=== PATIENT | male | born 1945 ===

== ENCOUNTER 2024-06-19 06:38 | Day surgery (SDC) | payer OTHER ==
[2024-06-19] MEDS ORDERED: fentaNYL CITRATE 50 MCG/ML AMPUL IV ONE (10:30)
[2024-06-19] MEDS ORDERED: MIDAZOLAM HCL 2 MG/2 ML VIAL IV ONE (10:30)
[2024-06-19] MEDS ORDERED: DIPHENHYDRAMINE HCL 50 MG/ML VIAL 1ML IV ONE (10:30)
[2024-06-19] MEDS ORDERED: FLUMAZENIL 0.5 MG/5 ML ML IV ONE (11:45)
[2024-06-19] MEDS ORDERED: ENALAPRILAT DIHYDRATE 2.5 MG/2 ML VIAL IV ONE (13:00)
== END 2024-06-19 13:30 | disposition home or self-care (01) ==
LOC: AMB-ENDOS 06:38
PROVIDERS: ATTEND Surgery
DX: K63.5 Polyp of colon (principal); K57.30 Diverticulosis of large intestine without perforation or abscess without bleeding; K64.8 Other hemorrhoids; Z86.0100 Personal history of colon polyps, unspecified

== ENCOUNTER 2024-11-28 06:47 | Day surgery (SDC) | payer OTHER ==
[2024-11-28] MEDS ORDERED: MIDAZOLAM HCL 2 MG/2 ML VIAL IV ONE (10:30)
[2024-11-28] MEDS ORDERED: DIPHENHYDRAMINE HCL 50 MG/ML VIAL 1ML IV ONE (10:30)
[2024-11-28] MEDS ORDERED: fentaNYL CITRATE 50 MCG/ML AMPUL IV ONE (10:30)
[2024-11-28] MEDS ORDERED: ENALAPRILAT DIHYDRATE 2.5 MG/2 ML VIAL IV ONE (10:45)
== END 2024-11-28 11:40 | disposition home or self-care (01) ==
LOC: AMB-ENDOS 06:47
PROVIDERS: ATTEND Surgery
DX: D12.2 Benign neoplasm of ascending colon (principal); D12.3 Benign neoplasm of transverse colon; D12.4 Benign neoplasm of descending colon; K63.5 Polyp of colon; K57.30 Diverticulosis of large intestine without perforation or abscess without bleeding; K64.8 Other hemorrhoids

== ENCOUNTER 2025-02-13 11:30 | Inpatient (IN) | payer OTHER ==
[~2025-02-13] VITALS: Ht 160 cm; Wt 66.2 kg
[2025-02-13] MEDS ORDERED: VASOTEC5 MG PO (13:03)
[2025-02-13] MEDS ORDERED: LEVO-T50 MCG PO (13:03)
[2025-02-13] MEDS ORDERED: ISOSORBIDE DINI30 MG PO (13:03)
[2025-02-13] MEDS ORDERED: TRADJENTA5 MG PO (13:04)
[2025-02-13] MEDS ORDERED: GLIPIZIDE XL5 MG PO (13:04)
[2025-02-20] MEDS ORDERED: METRONIDAZOLE/SODIUM CHLORIDE 500 MG/100 ML PIGGYBACK IV ONE ×2 (08:50→17:19)
[2025-02-20] MEDS ORDERED: CEFTRIAXONE SODIUM 2,000 MG VIAL ONE (08:50)
[2025-02-20] MEDS ORDERED: hydrALAZINE HCL 20 MG VIAL ONE (12:54)
[2025-02-20] MEDS ORDERED: SUGAMMADEX SODIUM 200 MG/2 ML VIAL IV ONE (13:15)
[2025-02-20] MEDS ORDERED: hydrALAZINE HCL 20 MG VIAL IV ONE (13:15)
[2025-02-20] MEDS ORDERED: MORPHINE SULFATE 4 MG/ML CARTRIDGE IV PRN (13:45)
[2025-02-20] MEDS ORDERED: RINGERS SOLUTION,LACTATED 1,000 ML IV SCH (13:45)
[2025-02-20] MEDS ORDERED: OxyCODONE HCL 5 MG TABLET (ROXICODONE) PO PRN (13:45)
[2025-02-20] MEDS ORDERED: ONDANSETRON HCL 2 MG/ML VIAL IV PRN (13:45)
[2025-02-20] MEDS ORDERED: ENALAPRILAT DIHYDRATE 1.25 MG/ML VIAL IV PRN (14:45)
[2025-02-20] MEDS ORDERED: TAMSULOSIN HCL 0.4 MG CAP PO SCH (17:00)
[2025-02-20] MEDS ORDERED: METRONIDAZOLE/SODIUM CHLORIDE 500 MG/100 ML PIGGYBACK IV SCH (17:00)
[2025-02-20] MEDS ORDERED: LACTOBACILLUS ACIDOPHILUS 1 CAP CAP PO SCH (17:00)
[2025-02-20] MEDS ORDERED: HYOSCYAMINE SULFATE 0.125 MG TAB.SUBL SL SCH (17:00)
[2025-02-20] MEDS ORDERED: ISOSORBIDE MONONITRATE 30 MG TABLET PO SCH (17:00)
[2025-02-20] MEDS ORDERED: GABAPENTIN 300 MG CAPSULE PO SCH (17:00)
[2025-02-20] MEDS ORDERED: ACETAMINOPHEN 500 MG GEL..CAP PO SCH (18:00)
[2025-02-20] MEDS ORDERED: ENALAPRILAT DIHYDRATE 1.25 MG/ML VIAL IV ONE (18:41)
[2025-02-20 20:37] VITALS: BP 172/68; O2SAT 94
[2025-02-20] MEDS ORDERED: FAMOTIDINE/PF 20 MG/2 ML VIAL IV PUSH SCH (21:00)
[2025-02-20] MEDS ORDERED: CIPROFLOXACIN IN 5 % DEXTROSE 400 MG/200 ML PIGGYBAG IV SCH (21:00)
[2025-02-21 00:30] VITALS: BP 137/73; O2SAT 96
[2025-02-21] MEDS ORDERED: LEVOTHYROXINE SODIUM 50 MCG TABLET PO SCH (06:00)
[2025-02-21 08:20] VITALS: BP 135/65; O2SAT 95
[2025-02-21] MEDS ORDERED: ENALAPRIL MALEATE 5 MG TABLET PO SCH (09:00)
[2025-02-21 09:08] LABS: BUN CREA RATIO 8.0 (7.0-25.0); CREATININE SERUM 0.87 mg/dL (0.70-1.30); GFR 84.65; GLUCOSE FASTING 178.0 mg/dL (65-100); OSMOLALITY SERUM 280.0 MOSM/KG (275-295)
[2025-02-21 16:00] VITALS: BP 101/64; O2SAT 95
[2025-02-21] MEDS ORDERED: MAGNESIUM SULFATE IN WATER 4 GM/100 ML PIGGYBACK IV NR (16:00)
[2025-02-21] MEDS ORDERED: ENOXAPARIN SODIUM 40 MG/0.4 ML SYRINGE SUBCUTANEO SCH (17:00)
[2025-02-21] MEDS ORDERED: SIMVASTATIN 40 MG TABLET PO SCH (17:00)
[2025-02-21] MEDS ORDERED: POTASSIUM CHLORIDE IN WATER 100 ML IV NR (18:00)
[2025-02-22] MEDS ORDERED: POTASSIUM PHOS,M-BASIC-D-BASIC 15 MM in 0.9 % SODIUM CHLORIDE 250 ML IV ONE
[2025-02-22 00:39] VITALS: BP 119/73; O2SAT 99
[2025-02-22 08:13] LABS: BASO % 0.4 % (0.1-1.2); EOS # 0.01 (0.04-0.54); EOS % 0.1 % (0.7-7.0); LYMPH # 0.65 (1.18-3.74); LYMPH % 7.7 % (19.3-53.1); MEAN PLATELET VOLUME 10.40 fl (9.4-12.4); MONO # 0.41 (0.24-0.82); MONO % 4.9 % (4.7-12.5); NEUT # 6.98 (1.56-6.13); NEUT % 82.5 % (34.0-71.1); RED CELL DISTRIBUTION WIDTH 12.9 % (11.6-14.4)
[2025-02-22 08:38] VITALS: BP 99/61; O2SAT 94
[2025-02-22 08:55] LABS: BUN CREA RATIO 11.0 (7.0-25.0); CREATININE SERUM 0.84 mg/dL (0.70-1.30); GFR 88.14; GLUCOSE FASTING 189.0 mg/dL (65-100); OSMOLALITY SERUM 279.0 MOSM/KG (275-295)
[2025-02-22] MEDS ORDERED: ENOXAPARIN SODIUM 40 MG/0.4 ML SYRINGE SUBCUTANEO SCH (09:00)
[2025-02-22 09:46] LABS: BAND MAN 39.0 %; BASOPHIL MAN 0.0 %; EOSINOPHIL MAN 0.0 %; LYMPHOCYTE MAN 10.0 %; MONOCYTE MAN 3.0 %; NEUTROPHILS MAN 43.0 %
[2025-02-22] MEDS ORDERED: NAPH,MB-DB/K PH,MBDB 1 PKT PACKET PO SCH (13:00)
[2025-02-22 16:00] VITALS: BP 129/73; O2SAT 96
[2025-02-22 18:30] VITALS: BP 115/69; O2SAT 95
[2025-02-22] MEDS ORDERED: DILTIAZEM HCL 50 MG/10 ML VIAL IV ONE (19:15)
[2025-02-22] MEDS ORDERED: PIPERACILLIN/TAZOBACTAM SODIUM 3.375 GM VIAL IV STA (19:54)
[2025-02-22] MEDS ORDERED: PIPERACILLIN/TAZOBACTAM SODIUM 3.375 GM VIAL IV SCH (19:54)
[2025-02-22 20:04] LABS: BASO % 0.3 % (0.1-1.2); EOS # 0.02 (0.04-0.54); EOS % 0.2 % (0.7-7.0); LYMPH # 0.85 (1.18-3.74); LYMPH % 8.6 % (19.3-53.1); MEAN PLATELET VOLUME 10.10 fl (9.4-12.4); MONO # 0.45 (0.24-0.82); MONO % 4.6 % (4.7-12.5); NEUT # 8.46 (1.56-6.13); RED CELL DISTRIBUTION WIDTH 12.9 % (11.6-14.4)
[2025-02-22 20:34] LABS: ALT/SGPT 22.0 U/L (12-78); AST/SGOT 20.0 U/L (15-37); BILIRUBIN TOTAL 0.8 mg/dL (0.3-1.2); BUN CREA RATIO 10.0 (7.0-25.0); CREATININE SERUM 0.9 mg/dL (0.70-1.30); GFR 81.4; GLOBULINA 3.0 G/DL (2.4-3.5)
[2025-02-22 20:42] LABS: NEUT % 85.8 % (34.0-71.1)
[2025-02-22 20:43] LABS: BAND MAN 5.0 %; LYMPHOCYTE MAN 10.0 %; MONOCYTE MAN 7.0 %; NEUTROPHILS MAN 77.0 %; OSMOLALITY SERUM 286.0 MOSM/KG (275-295)
[2025-02-22 20:46] LABS: GLUCOSE FASTING 204.0 mg/dL (65-100)
[2025-02-22] MEDS ORDERED: POTASSIUM PHOS,M-BASIC-D-BASIC 3 MM/ML VIAL IV SCH (20:52)
[2025-02-23 00:40] VITALS: BP 131/76; O2SAT 96
[2025-02-23 06:29] LABS: BASO % 0.7 % (0.1-1.2); EOS # 0.00 (0.04-0.54); EOS % 0.0 % (0.7-7.0); LYMPH # 0.54 (1.18-3.74); LYMPH % 7.5 % (19.3-53.1); MEAN PLATELET VOLUME 10.50 fl (9.4-12.4); MONO # 0.51 (0.24-0.82); MONO % 7.1 % (4.7-12.5); NEUT # 6.08 (1.56-6.13); NEUT % 84.4 % (34.0-71.1); RED CELL DISTRIBUTION WIDTH 13.3 % (11.6-14.4)
[2025-02-23 06:47] LABS: ALT/SGPT 18.0 U/L (12-78); AST/SGOT 17.0 U/L (15-37); BILIRUBIN TOTAL 0.69 mg/dL (0.3-1.2); BUN CREA RATIO 15.0 (7.0-25.0); CREATININE SERUM 0.81 mg/dL (0.70-1.30); GFR 91.92; GLOBULINA 2.7 G/DL (2.4-3.5); GLUCOSE FASTING 195.0 mg/dL (65-100); OSMOLALITY SERUM 286.0 MOSM/KG (275-295)
[2025-02-23] MEDS ORDERED: GABAPENTIN300 MG PO (07:03)
[2025-02-23] MEDS ORDERED: PAIN RELIEVER500 M2 PO (07:03)
[2025-02-23] MEDS ORDERED: HYOSCYAMINE0.125 M1 SL (07:03)
[2025-02-23 07:56] LABS: BAND MAN 20.0 %; LYMPHOCYTE MAN 6.0 %; METAMYELOCYTE 1.0 %; MONOCYTE MAN 8.0 %; MYELOCYTE 1.0 %; NEUTROPHILS MAN 63.0 %
[2025-02-23 08:00] VITALS: BP 101/69; O2SAT 96
[2025-02-23] MEDS ORDERED: POTASSIUM PHOS,M-BASIC-D-BASIC 3 MM/ML VIAL IV SCH (09:00)
[2025-02-23] MEDS ORDERED: DILTIAZEM HCL 125 MG in 0.9 % SODIUM CHLORIDE 100 ML IV SCH (09:15)
[2025-02-23 14:58] LABS: BUN CREA RATIO 17.0 (7.0-25.0); CHOL HDL RATIO 8.4 (0-5.0); CREATININE SERUM 0.76 mg/dL (0.70-1.30); GFR 98.94; GLUCOSE FASTING 191.0 mg/dL (65-100); OSMOLALITY SERUM 288.0 MOSM/KG (275-295)
[2025-02-23 15:02] LABS: HDL 9.0 mg/dl (40-60); LDL 22.0 mg/dl (0-130); VLDL 45.0 (0-39)
[2025-02-23] MEDS ORDERED: AA 4.25%/CAL/LYTES/DEXT 5% 1,000 ML PERIFERAL SCH (17:00)
[2025-02-23 17:51] VITALS: BP 127/67; O2SAT 91
[2025-02-24 01:34] VITALS: BP 137/79; O2SAT 95
[2025-02-24 04:00] VITALS: O2SAT 96
[2025-02-24 08:22] VITALS: BP 123/75; O2SAT 96
[2025-02-24 08:48] LABS: BASO % 0.6 % (0.1-1.2); EOS # 0.07 (0.04-0.54); EOS % 1.1 % (0.7-7.0); LYMPH # 0.65 (1.18-3.74); LYMPH % 10.1 % (19.3-53.1); MEAN PLATELET VOLUME 10.80 fl (9.4-12.4); MONO # 0.52 (0.24-0.82); MONO % 8.1 % (4.7-12.5); NEUT # 5.13 (1.56-6.13); NEUT % 79.6 % (34.0-71.1); RED CELL DISTRIBUTION WIDTH 13.7 % (11.6-14.4)
[2025-02-24 09:36] LABS: BUN CREA RATIO 28.0 (7.0-25.0); CREATININE SERUM 0.58 mg/dL (0.70-1.30); GFR 135.15; TSH 0.655 uIU/mL (0.358-3.74)
[2025-02-24 09:54] LABS: GLUCOSE FASTING 201.0 mg/dL (65-100); OSMOLALITY SERUM 286.0 MOSM/KG (275-295)
[2025-02-24] MEDS ORDERED: POTASSIUM PHOS,M-BASIC-D-BASIC 3 MM/ML VIAL IV ONE (10:15)
[2025-02-24] MEDS ORDERED: POTASSIUM PHOS,M-BASIC-D-BASIC 15 MM in 0.9 % SODIUM CHLORIDE 250 ML IV NR (10:15)
[2025-02-24 15:58] VITALS: BP 146/76; O2SAT 95
[2025-02-24] MEDS ORDERED: METOPROLOL TARTRATE 25 MG TABLET PO SCH (20:59)
[2025-02-25 01:07] VITALS: BP 134/80; O2SAT 100
[2025-02-25] MEDS ORDERED: LEVALBUTEROL HCL 0.63 MG/3 ML SOLUTION IH ONE (05:45)
[2025-02-25 07:30] LABS: BUN CREA RATIO 20.0 (7.0-25.0); CREATININE SERUM 0.69 mg/dL (0.70-1.30); GFR 110.61; GLUCOSE FASTING 217.0 mg/dL (65-100); OSMOLALITY SERUM 281.0 MOSM/KG (275-295)
[2025-02-25 07:40] VITALS: BP 137/74; O2SAT 98
[2025-02-25] MEDS ORDERED: POTASSIUM PHOS,M-BASIC-D-BASIC 3 MM/ML VIAL IV NR (12:00)
[2025-02-25 15:35] VITALS: BP 127/73; O2SAT 97
[2025-02-26 01:07] VITALS: BP 115/70; O2SAT 97
[2025-02-26 07:05] LABS: BASO % 0.7 % (0.1-1.2); EOS # 0.06 (0.04-0.54); EOS % 1.0 % (0.7-7.0); LYMPH # 0.81 (1.18-3.74); LYMPH % 13.5 % (19.3-53.1); MEAN PLATELET VOLUME 10.50 fl (9.4-12.4); MONO # 0.54 (0.24-0.82); MONO % 9.0 % (4.7-12.5); NEUT # 4.49 (1.56-6.13); NEUT % 75.1 % (34.0-71.1); RED CELL DISTRIBUTION WIDTH 13.5 % (11.6-14.4)
[2025-02-26 07:31] LABS: BUN CREA RATIO 19.0 (7.0-25.0); CREATININE SERUM 0.73 mg/dL (0.70-1.30); GFR 103.64; GLUCOSE FASTING 193.0 mg/dL (65-100); OSMOLALITY SERUM 281.0 MOSM/KG (275-295)
[2025-02-26 08:00] VITALS: BP 106/66; O2SAT 97
[2025-02-26 08:59] VITALS: O2SAT 852
[2025-02-26] MEDS ORDERED: POTASSIUM PHOS,M-BASIC-D-BASIC 3 MM/ML VIAL IV ONE (14:00)
[2025-02-26 16:00] VITALS: BP 123/72; O2SAT 99
[2025-02-26] MEDS ORDERED: INSULIN LISPRO 1,000 UNIT/10 ML UNITS SUBCUTANEO PRN (18:30)
[2025-02-26] MEDS ORDERED: DEXTROSE 50 % IN WATER 0.5 G/ML DISP.SYRIN IV PRN (18:30)
[2025-02-27] VITALS: BP 131/81; O2SAT 96
[2025-02-27] MEDS ORDERED: METOPROLOL TARTRATE 50 MG TABLET PO SCH (06:08)
[2025-02-27 08:00] VITALS: BP 103/72; O2SAT 98
[2025-02-27 16:00] VITALS: BP 122/76; O2SAT 99
[2025-02-27] MEDS ORDERED: AMIODARONE HCL 900 MG/500 ML KIT IV ONE (21:42)
[2025-02-27] MEDS ORDERED: AMIODARONE HCL 900 MG in DEXTROSE 5 % IN WATER 500 ML IV SCH (21:45)
[2025-02-28 00:45] VITALS: BP 121/81; O2SAT 100
[2025-02-28] MEDS ORDERED: METOPROLOL TARTRATE 50 MG TABLET PO SCH (05:00)
[2025-02-28 08:00] VITALS: BP 125/64; O2SAT 98
[2025-02-28] MEDS ORDERED: ENOXAPARIN SODIUM 60 MG/0.6 ML SYRINGE SUBCUTANEO SCH (09:00)
[2025-02-28] MEDS ORDERED: AMIODARONE HCL 200 MG TABLET PO SCH (09:09)
[2025-02-28] MEDS ORDERED: ACETAMINOPHEN 500 MG GEL..CAP PO PRN (10:00)
[2025-02-28] MEDS ORDERED: METOPROLOL TARTRATE 50 MG,METOPROLOL TARTRATE 25 MG PO SCH (13:00)
[2025-02-28 16:00] VITALS: BP 145/80; O2SAT 98
[2025-03-01] VITALS: BP 133/72; O2SAT 97
[2025-03-01 08:00] VITALS: BP 133/67; O2SAT 98
[2025-03-01] MEDS ORDERED: AMIODARONE HCL200 MG PO (10:39)
[2025-03-01] MEDS ORDERED: ENALAPRIL MALEAT5 MG PO (10:39)
[2025-03-01] MEDS ORDERED: ISOSORBIDE MONO30 MG PO (10:40)
[2025-03-01] MEDS ORDERED: LOPRESSOR25 MG PO (10:41)
[2025-03-01] MEDS ORDERED: METOPROLOL TART50 MG PO (10:41)
[2025-03-01] MEDS ORDERED: SIMVASTATIN40 MG PO (10:42)
[2025-03-01] MEDS ORDERED: FAMOTIDINE20 MG PO (10:42)
[2025-03-01] MEDS ORDERED: LEVOTHYROXINE50 MCG PO (10:43)
[2025-03-01] MEDS ORDERED: CHOLESTYRAMINE/ASPARTAME LIGHT 4 G/PKT PACKET PO STA (11:13)
== END 2025-03-01 14:15 | disposition home or self-care (01) | DRG 330 ==
LOC: SURH 02-20 07:00 → SURG 02-20 08:00 → O/R 02-20 08:00 → SURH 02-20 11:30 → SURG 02-20 15:34
PROVIDERS: Internal Medicine; Internal Medicine Geriatric Medicine; Surgery; ADMIT Surgery; ATTEND Surgery
PROC: 07BB4ZZ Excision of Mesenteric Lymphatic, Percutaneous Endoscopic Approach (ICD-10-PCS; 2025-02-20)
PROC: 0DNW0ZZ Release Peritoneum, Open Approach (ICD-10-PCS; 2025-02-20)
PROC: 8E0W4CZ Robotic Assisted Procedure of Trunk Region, Percutaneous Endoscopic Approach (ICD-10-PCS; 2025-02-20)
PROC: 0DTF4ZZ Resection of Right Large Intestine, Percutaneous Endoscopic Approach (ICD-10-PCS; principal; 2025-02-20 07:00)
PROC: 4A12X4Z Monitoring of Cardiac Electrical Activity, External Approach (ICD-10-PCS; 2025-02-22)
PROC: B246ZZZ Ultrasonography of Right and Left Heart (ICD-10-PCS; 2025-02-24)
PROC: 02HV33Z Insertion of Infusion Device into Superior Vena Cava, Percutaneous Approach (ICD-10-PCS; 2025-02-24)
PROC: 3E0F7GC Introduction of Other Therapeutic Substance into Respiratory Tract, Via Natural or Artificial Opening (ICD-10-PCS; 2025-02-25)
DX: K57.30 Diverticulosis of large intestine without perforation or abscess without bleeding (principal); I48.20 Chronic atrial fibrillation, unspecified; D37.4 Neoplasm of uncertain behavior of colon; R00.0 Tachycardia, unspecified; E03.8 Other specified hypothyroidism; I11.9 Hypertensive heart disease without heart failure
CPT/HCPCS: 44204; 38570; 44120; 93306; 36573; 94640; 93228; S2900